=== PATIENT | female | born 1975 | race Caucasian/White ===

== ENCOUNTER 2024-12-17 01:43 | Emergency (ER) | payer OTHER ==
[2024-12-17 02:02] VITALS: RESP 20; TEMP 96
--- NOTE | 2024-12-17 02:03 | ERPHSYRPT ---
- History of Present Illness Time Seen by Provider: 12/17/24 02:00 Source: patient Exam Limitations: no limitations Physician History: 49-year-old female smoker presents to emergency department for evaluation of hypertension. Patient states she had several nosebleeds today. Patient checked her blood pressure and observed it to be elevated. Patient became concerned and presented to our ED. No associated chest pain or shortness of breath. No nausea vomiting or diaphoresis. Patient does not have a primary care doctor that she follows with regularly. Patient denies past medical history however she does not follow-up for regular checkups. Patient otherwise feels well. She voices no other complaints or concerns at this time. No active nosebleeds at this time. Portions of this note were created with voice recognition technology. There may be grammatical, spelling, punctuation or sound alike errors Timing/Duration: today Severity: moderate Associated Symptoms: denies symptoms Allergies/Adverse Reactions: cephalexin [From Keflex] Allergy (Verified 12/17/24 02:02) Home Medications: No Reportable Medications [No Reported Medications] 12/17/24 [History] - Review of Systems Constitutional: No Symptoms, No Fever, No Chills Eyes: No Symptoms Ears, Nose, & Throat: No Symptoms Respiratory: No Symptoms, No Cough, No Dyspnea Cardiac: No Symptoms, No Chest Pain, No Edema, No Syncope Abdominal/Gastrointestinal: No Symptoms, No Abdominal Pain, No Nausea, No Vomiting, No Diarrhea Genitourinary Symptoms: No Symptoms, No Dysuria Musculoskeletal: No Symptoms, No Back Pain, No Neck Pain Skin: No Symptoms, No Rash Neurological: No Symptoms, No Dizziness, No Focal Weakness, No Sensory Changes Psychological: No Symptoms Endocrine: No Symptoms Hematologic/Lymphatic: No Symptoms Immunological/Allergic: No Symptoms All Other Systems: Reviewed and Negative - Nursing Vital Signs Nursing Vital Signs: Initial Vital Signs Temperature 96.0 F 12/17/24 01:50 Pulse Rate 88 12/17/24 01:50 Respiratory Rate 20 12/17/24 01:50 Blood Pressure 176/106 12/17/24 01:50 O2 Sat by Pulse Oximetry 98 12/17/24 01:50 Pain Scale Pain Intensity 0 - Physical Exam General Appearance: no apparent distress, alert Eye Exam: PERRL/EOMI, eyes nml inspection Ears, Nose, Throat Exam: normal ENT inspection, TMs normal, pharynx normal, moist mucous membranes Neck Exam: normal inspection, non-tender, supple, full range of motion Respiratory Exam: normal breath sounds, lungs clear, No respiratory distress Cardiovascular Exam: regular rate/rhythm, normal heart sounds, normal peripheral pulses Gastrointestinal/Abdomen Exam: soft, normal bowel sounds, No tenderness, No mass Back Exam: normal inspection, normal range of motion, No CVA tenderness, No vertebral tenderness Extremity Exam: normal inspection, normal range of motion, pelvis stable Neurologic Exam: alert, oriented x 3, cooperative, normal mood/affect, sensation nml, No motor deficits Skin Exam: normal color, warm, dry, No rash Lymphatic Exam: No adenopathy SpO2 Interpretation: normal O2 Delivery: Room Air - Course Nursing assessment & vital signs reviewed: Yes EKG Interpreted by Me: RATE (75), Sinus Rhythm, NORMAL AXIS, NORMAL INTERVALS, NORMAL QRS Ordered Tests: Active Orders 24 hr Category Date Time Status Paster Hat Lining STAT Care 12/17/24 02:02 Active EKG-ER Only STAT Care 12/17/24 02:01 Active IV Insertion STAT Care 12/17/24 02:01 Active Pulse Oximetry (ED) STAT Care 12/17/24 02:01 Active CBC W DIFF Stat Lab 12/17/24 02:13 Completed CMP Stat Lab 12/17/24 02:13 Completed TROPONIN Q4H Lab 12/17/24 02:13 Completed TROPONIN Q4H Lab 12/17/24 06:15 Ordered TROPONIN Q4H Lab 12/17/24 10:15 Ordered UA W/RFX UR CULTURE Stat Lab 12/17/24 02:02 Ordered Lab/Rad Data: Laboratory Result Diagrams 12/17/24 02:13 12/17/24 02:13 Laboratory Results 12/17/24 12/17/24 12/17/24 Range/Units 02:13 02:13 02:13 WBC 7.3 (3.98-10.04) x10^3/uL RBC 4.05 (3.93-5.22) x10^6/uL Hgb 13.9 (11.2-15.7) g/dL Hct 40.5 (34.1-44.9) % MCV 100.0 H (79.4-94.8) fL MCH 34.3 H (25.6-32.2) pg MCHC 34.3 (32.2-35.5) g/dL RDW 12.5 (11.7-14.4) % Plt Count 195 (182-369) x10^3/uL MPV 9.4 (9.4-12.3) fL Gran % 50.1 (34.0-71.1) % Immature Gran % (Auto) 0.4 (0.001-0.429) % Nucleat RBC Rel Count 0.0 (0.00-0.2) % Eos # (Auto) 0.28 (0.04-0.36) x10^3/uL Immature Gran # (Auto) 0.03 (0.001-0.031) x10^3u/L Absolute Lymphs (auto) 2.66 (1.18-3.74) x10^3/uL Absolute Monos (auto) 0.64 (0.24-0.86) x10^3/uL Absolute Nucleated RBC 0.00 (0.00-0.012) x10^3u/L Lymphocytes % 36.5 (19.3-51.7) % Monocytes % 8.8 (4.7-12.5) % Eosinophils % 3.8 (0.7-5.8) % Basophils % 0.4 (0.1-1.2) % Absolute Granulocytes 3.65 (1.56-6.13) x10^3/uL Basophils # 0.03 (0.01-0.08) x10^3/uL Sodium 144 (135-145) mmol/L Potassium 3.6 (3.5-5.1) mmol/L Chloride 105 (98-107) mmol/L Carbon Dioxide 23 (22-30) mmol/L Anion Gap 18.8 H (5-15) MEQ/L BUN 11 (7-17) mg/dL Creatinine 0.68 (0.52-1.04) mg/dL Estimated GFR 106.7 ML/MIN Glucose 114 H (74-106) mg/dL Calcium 9.7 (8.4-10.2) mg/dL Total Bilirubin 0.30 (0.2-1.3) mg/dL AST 64 H (14-36) U/L ALT 66 H (0-35) U/L Alkaline Phosphatase 91 (38-126) U/L Troponin I < 0.012 (0.000-0.033) ng/mL Serum Total Protein 7.4 (6.3-8.2) g/dL Albumin 4.6 (3.5-5.0) g/dL - Progress Progress: improved Progress Note: 49-year-old female presents to our ED for evaluation of nosebleeds. No epistaxis upon our examination. No recurrence of epistaxis during her ED stay. Patient was hypertensive upon arrival. Blood pressure significantly improved from 176 systolic to 152. Patient remains asymptomatic. Physical exam unremarkable. Laboratory workup essentially nonremarkable. Patient continues to denies chest pain shortness of breath. No indication for further workup at this time. Will discharge home. Patient does not have a primary care doctor. Patient referred to Dr. Quezada for follow-up. Will discharge home. Patient voices no other complaints or concerns at this time. Portions of this note were created with voice recognition technology. There may be grammatical, spelling, punctuation or sound alike errors Complexity of problem addressed is moderate acute complicated. No critical care time. Complexity of data reviewed and analyzed as moderate. Test ordered chest reviewed results analyzed and correlated clinically with history and physical exam. Risk of complication and or risk of morbidity/mortality of patient management is low. Vital stable. Time spent to discharge patient is approximately 10 minutes. Plan of care established for shared decision making. No social determinants of health present to impede follow-up. Portions of this note were created with voice recognition technology. There may be grammatical, spelling, punctuation or sound alike errors 12/17/24 02:58 Counseled pt/family regarding: lab results, diagnosis, need for follow-up - Departure Departure Disposition: Home Clinical Impression: Hypertension, Epistaxis Condition: Stable Critical Care Time: No Referrals: DOCTOR,NO FAMILY [Primary Care Provider, UNKNOWN] - Follow up/PCP as directed CLAIRE QUEZADA DO [ACTIVE STAFF, FAMILY PRACTICE] - Follow up/PCP as directed Additional Instructions: Discharge/Care Plan CARLEEN CAT was seen on 12/17/24 in the Emergency Room. The patient was counseled regarding Diagnosis,Lab results, Imaging studies, need for follow up and when to return to the Emergency Room. Prescriptions given: Discharge Note I have spoken with the patient and/or caregivers. I have explained the patient's condition, diagnosis and treatment plan based on the information available to me at this time. I have answered the patient's and/or caregiver's questions and addressed any concerns. The patient and/or caregivers have as good understanding of the patient's diagnosis, condition and treatment plan as can be expected at this point. The vital signs have been stable. The patient's condition is stable and appropriate for discharge from the emergency department. The patient will pursue further outpatient evaluation with the primary care physician or other designated or consulting physician as outlined in the discharge instructions. The patient and/or caregivers are agreeable to this plan of care and follow-up instructions have been explained in detail. The patient and/or caregivers have received these instruction. The patient/and or caregivers are aware that any significant change in condition or worsening of symptoms should prompt an immediate return to this or the closest emergency department or call 911.
[2024-12-17 02:15] LABS: Absolute Neutrophil Ct (ANC) 3.65 x10^3/uL (1.56-6.13); BASOPHIL % 0.4 % (0.1-1.2); Basophil (Absolute #) 0.03 x10^3/uL (0.01-0.08); Eosinophil % 3.8 % (0.7-5.8); Eosinophil (Absolute #) 0.28 x10^3/uL (0.04-0.36); Hematocrit 40.5 % (34.1-44.9); Hemoglobin 13.9 g/dL (11.2-15.7); IMMATURE GRAN # 0.03 x10^3u/L (0.001-0.031); IMMATURE GRAN % 0.4 % (0.001-0.429); Lymphocyte (Absolute #) 2.66 x10^3/uL (1.18-3.74); Lymphocytes % 36.5 % (19.3-51.7); Mean Corpuscular Hemoglobin 34.3 pg (25.6-32.2); Mean Corpuscular Hgb Concent. 34.3 g/dL (32.2-35.5); Mean Platelet Volume 9.4 fL (9.4-12.3); Monocyte (Absolute #) 0.64 x10^3/uL (0.24-0.86); Monocytes % 8.8 % (4.7-12.5); Neutrophil % 50.1 % (34.0-71.1); Platelet Count 195 x10^3/uL (182-369); Red Blood Count 4.05 x10^6/uL (3.93-5.22); Red Cell Distribution Width 12.5 % (11.7-14.4); White Blood Count 7.3 x10^3/uL (3.98-10.04)
[2024-12-17 02:34] LABS: ALBUMIN 4.6 g/dL (3.5-5.0); ANION GAP 18.8 MEQ/L (5-15); BILIRUBIN,TOTAL 0.3 mg/dL (0.2-1.3); Calcium 9.7 mg/dL (8.4-10.2); Creatinine 1 0.68 mg/dL (0.52-1.04); EST GLOMERULAR FILTRATION RATE 106.7 ML/MIN; Potassium 3.6 mmol/L (3.5-5.1); Total Protein 7.4 g/dL (6.3-8.2)
[2024-12-17 03:13] VITALS: BP 145/91; PULSE 74; O2SAT 98
== END 2024-12-17 03:18 | disposition home or self-care (01) ==
LOC: ED 01:43
DX: I10 Essential (primary) hypertension (principal); R04.0 Epistaxis
CPT/HCPCS: 36415; 80053; 84484; 85025; 93005; 93041; 94760; 99284